=== PATIENT | male | born 1970 | race Caucasian/White ===

== ENCOUNTER 2019-06-27 17:15 | Emergency (ER) | payer BC ==
[2019-06-27 17:28] VITALS: BP 121/89
--- NOTE | 2019-06-27 18:58 | UC ---
Respiratory Complaint HPI - HPI Summary HPI Summary: 49 yo male with >2 week hx of sinus pressure and pain frontal HERNANDEZ upper teeth sensitive no f/c post nasal drip and nasal congestion now with L>R ear ache - History of Current Complaint Chief Complaint: UCGeneralIllness Stated Complaint: SINUS INFECTION, EARACHE Time Seen by Provider: 06/27/19 18:46 Hx Obtained From: Patient Onset/Duration: Gradual Onset Timing: Constant Severity Initially: Mild Severity Currently: Mild Pain Intensity: 4 Pain Scale Used: Adult Non Verbal Character: Cough: Nonproductive Aggravating Factors: Nothing Alleviating Factors: Nothing Associated Signs And Symptoms: Positive: URI, Nasal Congestion, Sinus Discomfort. Negative: Dyspnea, Fever, Chills, Pleuritic Chest Pain, Wheezing, Hemoptysis, Dizziness, Calf Pain, Calf Swelling, Edema - Allergies/Home Medications Allergies/Adverse Reactions: Allergies Allergy/AdvReac Type Severity Reaction Status Date / Time No Known Allergies Allergy Verified 06/27/19 17:28 Home Medications: Home Medications Cetirizine* [ZyrTEC 10 MG TAB*] 10 mg PO DAILY 06/27/19 [History Confirmed 06/27] PMH/Surg Hx/FS Hx/Imm Hx Previously Healthy: Yes - Surgical History Surgical History: None - Family History Known Family History: Positive: Hypertension - Social History Alcohol Use: Occasionally Substance Use Type: Marijuana Smoking Status (MU): Never Smoked Tobacco Review of Systems All Other Systems Reviewed And Are Negative: Yes Constitutional: Positive: Fatigue Skin: Positive: Negative Eyes: Positive: Negative ENT: Positive: Ear Ache, Nasal Discharge, Sinus Congestion, Sinus Pain/ Tenderness Respiratory: Positive: Cough Cardiovascular: Positive: Negative Gastrointestinal: Positive: Negative Genitourinary: Positive: Negative Motor: Positive: Negative Neurovascular: Positive: Negative Musculoskeletal: Positive: Negative Neurological: Positive: Negative Psychological: Positive: Negative Physical Exam Triage Information Reviewed: Yes Appearance: Well-Appearing, No Pain Distress, Well-Nourished Vital Signs: Initial Vital Signs Temp 98.3 F 06/27/19 17:23 Pulse 60 06/27/19 17:23 Resp 18 06/27/19 17:23 BP 121/89 06/27/19 17:23 Pulse Ox 97 06/27/19 17:23 Vital Signs Reviewed: Yes Eyes: Positive: Conjunctiva Clear ENT: Positive: Hearing grossly normal, Nasal congestion, Nasal drainage, TM bulging, Sinus tenderness, Uvula midline. Negative: Tonsillar exudate, Trismus , Muffled voice, Hoarse voice Neck: Positive: Supple, Nontender, No Lymphadenopathy Respiratory: Positive: Lungs clear, Normal breath sounds, No respiratory distress, No accessory muscle use Cardiovascular: Positive: RRR, No Murmur Abdomen Description: Positive: Nontender, No Organomegaly, Soft. Negative: CVA Tenderness (R), CVA Tenderness (L) Bowel Sounds: Positive: Present Musculoskeletal: Positive: ROM Intact, No Edema Neurological: Positive: Alert Psychological Exam: Normal Skin Exam: Normal Respiratory Course/Dx - Differential Dx/Diagnosis Provider Diagnosis: Acute sinusitis, Elevated BP without diagnosis of hypertension, Serous otitis media Discharge ED - Sign-Out/Discharge Documenting (check all that apply): Patient Departure All imaging exams completed and their final reports reviewed: No Studies - Discharge Plan Condition: Stable Disposition: HOME Prescriptions: Amoxicillin PO (*) [Amoxicillin 875 MG (*)] 875 mg PO BID #14 tab Patient Education Materials: Sinusitis (ED), Serous Otitis Media (ED) Referrals: [facility] – [place] [facility] [Outside] - 2 Weeks (BP recheck in 2-12 weeks) Additional Instructions: AFRIN nasal spray 2 sprays each nostril 3x day for 3 days saline nasal spray 2 sprays twice daily flonase 2 sprays twice daily about 5 minutes after the saline warm facial compresses BP in pre hypertensive range and should be rechecked - Billing Disposition and Condition Condition: STABLE Disposition: Home
== END 2019-06-27 19:00 | disposition home or self-care (01) ==
LOC: UCEAST 17:15
DX: J01.90 Acute sinusitis, unspecified (principal); R03.0 Elevated blood-pressure reading, without diagnosis of hypertension; H65.90 Unspecified nonsuppurative otitis media, unspecified ear
CPT/HCPCS: 99212; G0463